=== PATIENT | female | born 1960 | race Caucasian/White ===

== ENCOUNTER 2017-03-15 09:08 | Emergency (ER) | payer BC ==
[2017-03-15 09:23] VITALS: BP 136/76
--- NOTE | 2017-03-15 09:36 | UC ---
Cardiac HPI - HPI Summary HPI Summary: ONSET OF MID STERNAL CP AND SOB LAST NIGHT WHILE AT REST. FELT SHE CAN NOT TAKE A DEEP BREATH DUE TO PAIN. PAIN IS DESCRIBED TIGHT "LIKE A CHARLEY HORSE". ALSO IS COUGHING. NO FEVER, NO NAUSEA, NO RADIATION OF THE PAIN. - History of Current Complaint Stated Complaint: CHEST PAIN SOB Time Seen by Provider: 03/15/17 09:15 Hx Obtained From: Patient Hx Last Menstrual Period: 07/18/12 Onset/Duration: Sudden Onset, Lasting Hours, Still Present Initial Severity: Moderate Current Severity: Moderate Pain Intensity: 6 Chest Pain Location: Mid Sternal Character: Tightness Aggravating Factor(s): Nothing Alleviating Factor(s): Nothing Associated Signs & Symptoms: Positive: SOB, Cough. Negative: Nausea/Vomiting - Allergy/Home Medications Allergies/Adverse Reactions: Allergies Allergy/AdvReac Type Severity Reaction Status Date / Time Penicillins Allergy Severe Rash Verified 03/15/17 09:23 Latex Allergy RASH AND Verified 03/15/17 09:23 SKIN SWELLS FROM LATEX BANDAGES DAIRY/GRAINS Allergy Congestion Uncoded 03/15/17 09:23 ENVIRONMENT/SEASONAL Allergy ITCHY Uncoded 03/15/17 09:23 WATERY EYES, CONGESTION Home Medications: Home Medications Multiple Vitamin [Multivitamins] 1 tab PO DAILY 03/15/17 [History Confirmed ] PMH/Surg Hx/FS Hx/Imm Hx Respiratory History: Asthma - Surgical History Surgical History: Yes Surgery Procedure, Year, and Place: 1971 TONSILLECTOMY (AGE 11), [facility]. 1982 & 2010 BILATERAL BREAST REDUCTIONS X 2, [place], AND [facility]. EXCISION OF CELL FROM CERVIX, [facility] - Family History Known Family History: Positive: Hypertension Negative: Cardiac Disease - Social History Alcohol Use: Rare Substance Use Type: None Smoking Status (MU): Never Smoked Tobacco Review of Systems Constitutional: Negative Respiratory: Shortness Of Breath, Cough Cardiovascular: Chest Pain Gastrointestinal: Negative All Other Systems Reviewed And Are Negative: Yes Physical Exam Triage Information Reviewed: Yes Appearance: Well-Appearing, No Pain Distress, Well-Nourished Vital Signs: Initial Vital Signs Temp 97.9 F 03/15/17 09:19 Pulse 83 03/15/17 09:19 Resp 16 03/15/17 09:19 BP 136/76 03/15/17 09:19 Pulse Ox 100 03/15/17 09:19 Vital Signs Reviewed: Yes Eyes: Positive: Conjunctiva Clear ENT: Positive: Hearing grossly normal Neck: Positive: Supple, Nontender, No Lymphadenopathy Respiratory Exam: Normal Cardiovascular Exam: Normal Abdomen Description: Positive: Soft Musculoskeletal: Positive: No Edema Neurological: Positive: Alert Psychological: Positive: Age Appropriate Behavior Skin: Negative: rashes Diagnostics - EKG Cardiac Rate: NL - 83 BPM Cardiac Rhythm: Sinus: Normal Ectopy: None ST Segment: Non-Specific - LESS THAN 1MM ST ELEVATION INFERIOR LEADS - Assessment/Plan Course Of Treatment: TO [facility] BY PRIVATE CAR - Clinical Impression Provider Diagnoses: CHEST PAIN Discharge - Discharge Plan Condition: Stable Disposition: OTHER Discharge Disposition Comment: TO [facility] BY PRIVATE CAR Patient Education Materials: Chest Pain (ED) Referrals: Tamar VERNON,Dani Kellogg [Primary Care Provider] - If Needed Additional Instructions: GO DIRECTLY TO THE [facility] FROM HERE FOR FURTHER EVALUATION.
[2017-03-15] MEDS ORDERED: Aspirin Low Dose CHEW TAB* 81 MG PO ONE (09:51)
== END 2017-03-15 09:50 ==
LOC: UCEAST 09:08
DX: R07.9 Chest pain, unspecified (principal); Z88.0 Allergy status to penicillin; Z91.040 Latex allergy status; Z91.011 Allergy to milk products; J45.909 Unspecified asthma, uncomplicated
CPT/HCPCS: 99212; A9270-GY; G0463

== ENCOUNTER 2017-03-15 10:21 | Emergency (ER) | payer BC ==
--- NOTE | 2017-03-15 11:50 | RAD ---
HISTORY: Chest pain COMPARISONS: December 07, 2007 VIEWS: 1: frontal portable view of the chest at 11:40 AM FINDINGS: LINES AND TUBES: None. CARDIOMEDIASTINAL SILHOUETTE: The cardiomediastinal silhouette is normal for portable technique. PLEURA: The costophrenic angles are sharp. No pleural abnormalities are noted. LUNG PARENCHYMA: The lungs are clear. ABDOMEN: The upper abdomen is clear. There is no subphrenic gas. BONES AND SOFT TISSUES: No bone or soft tissue abnormalities are noted. IMPRESSION: NO ACTIVE CARDIOPULMONARY DISEASE.
[2017-03-15 12:06] LABS: ABS Basophils 0 10^3/ul (0-0.2); ABS Eosinophils 0.1 10^3/ul (0-0.6); ABS Lymphocytes 1.5 10^3/ul (1.0-4.8); ABS Monocytes 0.7 10^3/ul (0-0.8); ABS Neutrophils 5.6 10^3/ul (1.5-7.7); ABS Nucleated RBC 0 10^3/ul; Hematocrit 41 % (35-47); Hemoglobin 13.9 g/dl (12.0-16.0); Lymphocyte % 18.5 % (25-47); Mean Corpuscular HGB Conc 34 g/dl (31-36); Mean Corpuscular Hemoglobin 31 pg (27-31); Mean Corpuscular Volume 92 fL (80-97); Mean Platelet Volume 9 um3 (7.4-10.4); Nucleated Red Blood Cells % 0; Platelet Count 212 10^3/ul (150-450); Red Blood Count 4.49 10^6/ul (4.0-5.4); Red Cell Distribution Width 13 % (10.5-15); White Blood Count 7.9 10^3/ul (3.5-10.8)
[2017-03-15] MEDS ORDERED: Ketorolac INJ* 30 MG/ML 1 ML VIAL IV PUSH ONE (12:14)
[2017-03-15 12:25] LABS: EGFR Non-African American 57.6 (>60)
[2017-03-15 13:00] VITALS: BP 111/65
--- NOTE | 2017-03-16 17:44 | ED ---
Orlando Johnson Angela, scribed for Anthony Jensen MD on 03/15/17 at 1040 . HPI Chest Pain - HPI Summary HPI Summary: This pt is a 56 y/o female presenting to [facility] referred by [facility] c/o mid sternal chest pain since 22:30 last night. Pt states that pt had pain through the night but was able to sleep until 02:00 when her woke her up. She notes she couldn't go back to sleep after. Pt reports her pain is pleuritic, finding it difficult to breathe, and feels like her "heart has a knot in it." She describes a non-radiating sharp pain, rated 7/10 in severity at its worse with deep breathing. Her pain is aggravated with movement. Denies nausea, vomiting, lightheadedness, recent long travel distance. Pt denies any recent unusual physical activity. 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 - History of Current Complaint Chief Complaint: EDChestPainROMI Time Seen by Provider: 03/15/17 10:38 Hx Obtained From: Patient Hx Last Menstrual Period: 07/18/12 Onset/Duration: Started Hours Ago, Atraumatic, Still Present Timing: Lasting Hours Current Severity: Moderate Pain Intensity: 7 - at its worse Pain Scale Used: 0-10 Numeric Chest Pain Location: Mid Sternal Chest Pain Radiates: No Character: Sharp/Stabbing - Sharp Aggravating Factor(s): Deep Breaths Alleviating Factor(s): Nothing Associated Signs and Symptoms: Positive: Chest Pain. Negative: Shortness of Breath, Fever, Lightheadedness, Nausea, Vomiting - Allergy/Home Medications Allergies/Adverse Reactions: Allergies Allergy/AdvReac Type Severity Reaction Status Date / Time MS Penicillins [Penicillins] Allergy Severe Rash Verified 03/15/17 09:23 MS Latex [Latex] Allergy RASH AND Verified 03/15/17 09:23 SKIN SWELLS FROM LATEX BANDAGES DAIRY/GRAINS Allergy Congestion Uncoded 03/15/17 09:23 ENVIRONMENT/SEASONAL Allergy ITCHY Uncoded 03/15/17 09:23 WATERY EYES, CONGESTION Home Medications: Home Medications Multivitamins/Minerals TAB* [Theragran/minerals TAB*] 1 tab PO DAILY 03/15/17 [ History Confirmed 03/15/17] PMH/Surg Hx/FS Hx/Imm Hx Endocrine/Hematology History: Denies: Hx Diabetes, Hx Thyroid Disease Cardiovascular History: Denies: Hx Hypertension, Hx Pacemaker/ICD Respiratory History: Reports: Hx Asthma - past, Hx Sleep Apnea - NO MACHINES, WAKES HERSELF UP SNORING AND GASPING FOR BREATH Denies: Hx Chronic Obstructive Pulmonary Disease (COPD) Comment Only: Other Respiratory Problems/Disorders - PCP UNAWARE OF SLEEP APNEA INCIDENTS GI History: Reports: Hx Gastroesophageal Reflux Disease - RELATED TO WHAT SHE EATS Denies: Hx Ulcer Musculoskeletal History: Reports: Hx Tendonitis - BILATERAL WRIST Sensory History: Reports: Hx Contacts or Glasses - READING GLASSES Denies: Hx Hearing Aid Opthamlomology History: Reports: Hx Contacts or Glasses - READING GLASSES Psychiatric History: Denies: Hx Panic Disorder - Cancer History Hx Chemotherapy: No Hx Radiation Therapy: No - Surgical History Surgery Procedure, Year, and Place: 1971 TONSILLECTOMY (AGE 11), [facility]. 1982 & 2010 BILATERAL BREAST REDUCTIONS X 2, [place], AND [facility] [place]. EXCISION OF CELL FROM CERVIX, [facility] Anesthesia Reactions: No Infectious Disease History: No Infectious Disease History: Denies: Hx Clostridium Difficile, Hx Hepatitis, Hx Human Immunodeficiency Virus (HIV), Hx of Known/Suspected MRSA, Hx Shingles, Hx Tuberculosis, Hx Known/ Suspected VRE, Hx Known/Suspected VRSA, History Other Infectious Disease, Traveled Outside the [place] in Last 30 Days - Family History Known Family History: Positive: Hypertension Negative: Cardiac Disease - Social History Alcohol Use: Rare Substance Use Type: Reports: None Smoking Status (MU): Never Smoked Tobacco Review of Systems Negative: Fever, Chills Positive: Chest Pain Negative: Vomiting, Nausea Neurological: Other - NEG: lightheadedness All Other Systems Reviewed And Are Negative: Yes Physical Exam - Summary Physical Exam Summary: VITAL SIGNS: Reviewed. GENERAL: Patient is a well-developed and nourished female who is lying comfortable in the stretcher. Patient is not in any acute respiratory distress. HEAD AND FACE: No signs of trauma. No ecchymosis, hematomas or skull depressions. No sinus tenderness. EYES: PERRLA, EOMI x 2, No injected conjunctiva, no nystagmus. EARS: Hearing grossly intact. Ear canals and tympanic membranes are within normal limits. MOUTH: Oropharynx within normal limits. NECK: Supple, trachea is midline, no adenopathy, no JVD, no carotid bruit, no c- spine tenderness, neck with full ROM. CHEST: Symmetric, reproducible chest pain. LUNGS: Clear to auscultation bilaterally. No wheezing or crackles. CVS: Regular rate and rhythm, S1 and S2 present, no murmurs or gallops appreciated. ABDOMEN: Soft, non-tender. No signs of distention. No rebound no guarding, and no masses palpated. Bowel sounds are normal. EXTREMITIES: FROM in all major joints, no edema, no cyanosis or clubbing. NEURO: Alert and oriented x 3. No acute neurological deficits. Speech is normal and follows commands. SKIN: Dry and warm Triage Information Reviewed: Yes Vital Signs On Initial Exam: Initial Vitals Temp Pulse Resp BP Pulse Ox 97.6 F 95 18 161/76 100 03/15/17 10:23 03/15/17 10:23 03/15/17 10:23 03/15/17 10:23 03/15/17 10:23 Vital Signs Reviewed: Yes Diagnostics - Vital Signs Vital Signs Temp Pulse Resp BP Pulse Ox 03/15/17 10:23 97.6 F 95 18 161/76 100 - Laboratory Lab Results: Lab Results 03/15/17 03/15/17 03/15/17 Range/Units 11:57 11:57 11:57 WBC (3.5-10.8) 10^3/ul RBC (4.0-5.4) 10^6/ul Hgb (12.0-16.0) g/dl Hct (35-47) % MCV (80-97) fL MCH (27-31) pg MCHC (31-36) g/dl RDW (10.5-15) % Plt Count (150-450) 10^3/ul MPV (7.4-10.4) um3 Neut % (Auto) (38-83) % Lymph % (Auto) (25-47) % [place] % (Auto) (1-9) % Eos % (Auto) (0-6) % Baso % (Auto) (0-2) % Absolute Neuts (auto) (1.5-7.7) 10^3/ul Absolute Lymphs (auto) (1.0-4.8) 10^3/ul Absolute Monos (auto) (0-0.8) 10^3/ul Absolute Eos (auto) (0-0.6) 10^3/ul Absolute Basos (auto) (0-0.2) 10^3/ul Absolute Nucleated RBC 10^3/ul Nucleated RBC % D-Dimer, Quantitative < 200 (Less Than 230) ng/mL Sodium 139 (133-145) mmol/L Potassium 3.6 (3.5-5.0) mmol/L Chloride 105 (101-111) mmol/L Carbon Dioxide 25 (22-32) mmol/L Anion Gap 9 (2-11) mmol/L BUN 16 (6-24) mg/dL Creatinine 1.00 H (0.51-0.95) mg/dL Est GFR ( Amer) 74.0 (>60) Est GFR (Non-Af Amer) 57.6 (>60) BUN/Creatinine Ratio 16.0 (8-20) Glucose 138 H (70-100) mg/dL Lactic Acid (0.5-2.0) mmol/L Calcium 9.7 (8.6-10.3) mg/dL Magnesium 2.6 (1.9-2.7) mg/dL Total Bilirubin 0.60 (0.2-1.0) mg/dL AST 20 (13-39) U/L ALT 25 (7-52) U/L Alkaline Phosphatase 69 (34-104) U/L Total Creatine Kinase 45 (10-223) U/L CK-MB (CK-2) 0.7 (0.6-6.3) ng/mL Troponin I 0.00 (<0.04) ng/mL B-Natriuretic Peptide 29 ( - 100) pg/mL Total Protein 6.9 (6.4-8.9) g/dL Albumin 4.1 (3.2-5.2) g/dL Globulin 2.8 (2-4) g/dL Albumin/Globulin Ratio 1.5 (1-3) TSH 2.29 (0.34-5.60) mcIU/mL Beta HCG, Quant 3.78 mIU/mL 03/15/17 03/15/17 Range/Units 11:57 11:57 WBC 7.9 (3.5-10.8) 10^3/ul RBC 4.49 (4.0-5.4) 10^6/ul Hgb 13.9 (12.0-16.0) g/dl Hct 41 (35-47) % MCV 92 (80-97) fL MCH 31 (27-31) pg MCHC 34 (31-36) g/dl RDW 13 (10.5-15) % Plt Count 212 (150-450) 10^3/ul MPV 9 (7.4-10.4) um3 Neut % (Auto) 71.1 (38-83) % Lymph % (Auto) 18.5 L (25-47) % [place] % (Auto) 8.8 (1-9) % Eos % (Auto) 1.0 (0-6) % Baso % (Auto) 0.6 (0-2) % Absolute Neuts (auto) 5.6 (1.5-7.7) 10^3/ul Absolute Lymphs (auto) 1.5 (1.0-4.8) 10^3/ul Absolute Monos (auto) 0.7 (0-0.8) 10^3/ul Absolute Eos (auto) 0.1 (0-0.6) 10^3/ul Absolute Basos (auto) 0 (0-0.2) 10^3/ul Absolute Nucleated RBC 0 10^3/ul Nucleated RBC % 0 D-Dimer, Quantitative (Less Than 230) ng/mL Sodium (133-145) mmol/L Potassium (3.5-5.0) mmol/L Chloride (101-111) mmol/L Carbon Dioxide (22-32) mmol/L Anion Gap (2-11) mmol/L BUN (6-24) mg/dL Creatinine (0.51-0.95) mg/dL Est GFR ( Amer) (>60) Est GFR (Non-Af Amer) (>60) BUN/Creatinine Ratio (8-20) Glucose (70-100) mg/dL Lactic Acid 1.5 (0.5-2.0) mmol/L Calcium (8.6-10.3) mg/dL Magnesium (1.9-2.7) mg/dL Total Bilirubin (0.2-1.0) mg/dL AST (13-39) U/L ALT (7-52) U/L Alkaline Phosphatase (34-104) U/L Total Creatine Kinase (10-223) U/L CK-MB (CK-2) (0.6-6.3) ng/mL Troponin I (<0.04) ng/mL B-Natriuretic Peptide ( - 100) pg/mL Total Protein (6.4-8.9) g/dL Albumin (3.2-5.2) g/dL Globulin (2-4) g/dL Albumin/Globulin Ratio (1-3) TSH (0.34-5.60) mcIU/mL Beta HCG, Quant mIU/mL Result Diagrams: 03/15/17 11:57 03/15/17 11:57 Lab Statement: Any lab studies that have been ordered have been reviewed, and results considered in the medical decision making process. - Radiology Chest XR Xray Interpretation: No Acute Changes - IMPRESSION: No active cardiopulmonary disease. Dr. Jensen has reviewed this radiology report. Radiology Interpretation Completed By: Radiologist - EKG 10:44 Cardiac Rate: NL EKG Rhythm: Sinus Rhythm - at 83 bpm EKG Interpretation: No ST elevation. No STEMI. Re-Evaluation - Re-Evaluation First Eval Re-Evaluation Time: 12:38 Comment: I reviewed the XR and lab results with the pt. Chest Pain Course/Dx - Course Course Of Treatment: This pt is a 56 y/o female presenting to [facility] referred by [facility] c/o mid sternal chest pain since 22:30 last night. Pt states that pt had pain through the night but was able to sleep until 02:00 when her woke her up. She notes she couldn't go back to sleep after. Pt reports her pain is pleuritic, finding it difficult to breathe, and feels like her "heart has a knot in it." She describes a non-radiating sharp pain, rated 7/10 in severity at its worse with deep breathing. Her pain is aggravated with movement. Denies nausea, vomiting, lightheadedness, recent long travel distance. Pt denies any recent unusual physical activity. 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 Test results without any significant abnormalities. Chest XR shows no active cardiopulmonary disease. I dont believe the pt has acute coronary syndrome. The pt has no comorbidities to have acute coronary syndrome. The pt is not hypoxic or tachycardic, and D-dimer is negative. Therefore I have no suspicion for PE. In the ED course the pt was given toradol and her symptoms improved. She will be discharged to home with follow up from her PCP. Pt is hemodynamically stable, alert and oriented x3. - Chest Pain Differential Diagnosis/HQI/PQRI: Acute DC, ACS, Angina, CHF, Chest Wall, GI Disease, Lower Respiratory Infection, Pulmonary Edema - Diagnoses Provider Diagnoses: Atypical chest pain Discharge - Discharge Plan Condition: Stable Disposition: HOME Prescriptions: Naproxen [Naproxen 500 mg] 500 mg PO Q8H PRN #20 tab PRN Reason: Pain Patient Education Materials: Chest Pain (ED) Referrals: Tamar VERNON,Dani Kellogg [Primary Care Provider] - 3 Days Additional Instructions: Please follow up with your primary care provider. RETURN TO THE ED FOR ANY WORSENING SYMPTOMS. The documentation as recorded by the Orlando bates Angela accurately reflects the service I personally performed and the decisions made by Mikey leonard Walter, MD.
== END 2017-03-15 12:59 | disposition home or self-care (01) ==
LOC: ED 10:21
DX: R07.89 Other chest pain (principal); Z88.0 Allergy status to penicillin
CPT/HCPCS: 36415; 71045; 80053; 82550; 82553; 83605; 83735; 83880; 84443; 84484; 84702; 85025; 85379; 93005; 96374; 99282; J1885

== ENCOUNTER 2018-05-14 13:01 | Emergency (ER) | payer BC ==
[2018-05-14 13:11] VITALS: BP 125/78
--- NOTE | 2018-05-14 13:11 | UC ---
Skin Complaint HPI - HPI Summary HPI Summary: Tick bite left upper arm--attached about 24 hours---Is on Chemo for breast cancer and approaching NOMAN - History of Current Complaint Chief Complaint: UCRash Time Seen by Provider: 05/14/18 13:03 Stated Complaint: TICK BITE Hx Obtained From: Patient Hx Last Menstrual Period: 07/18/12 ?: No Onset/Duration: Sudden Onset, Lasting Days - 1 Timing: Constant Current Severity: None Location: Discrete Character: Redness Aggravating Factor(s): Nothing Alleviating Factor(s): Nothing Related History: Insect Bite/Sting - Allergy/Home Medications Allergies/Adverse Reactions: Allergies Allergy/AdvReac Type Severity Reaction Status Date / Time Latex, Natural Rubber Allergy Severe Rash Verified 05/14/18 13:12 Penicillins Allergy Severe Rash Verified 05/14/18 13:12 Nickel Allergy Severe Rash Uncoded 05/14/18 13:12 DAIRY/GRAINS Allergy Congestion Uncoded 05/14/18 13:12 ENVIRONMENT/SEASONAL Allergy ITCHY Uncoded 05/14/18 13:12 WATERY EYES, CONGESTION PMH/Surg Hx/FS Hx/Imm Hx Previously Healthy: No Cancer History: Breast Cancer - Surgical History Surgical History: Yes Surgery Procedure, Year, and Place: 1971 TONSILLECTOMY (AGE 11), [facility]. 1982 & 2010 BILATERAL BREAST REDUCTIONS X 2, [place], AND [facility]. EXCISION OF CELL FROM CERVIX, [facility] - Family History Known Family History: Positive: Hypertension Negative: Cardiac Disease - Social History Occupation: Employed Full-time Lives: With Family Alcohol Use: Rare Substance Use Type: None Smoking Status (MU): Never Smoked Tobacco Review of Systems All Other Systems Reviewed And Are Negative: Yes Constitutional: Positive: Negative Skin: Positive: Other - bruise from tick bite left upper arm Eyes: Positive: Negative ENT: Positive: Negative Respiratory: Positive: Negative Cardiovascular: Positive: Negative Gastrointestinal: Positive: Negative Genitourinary: Positive: Negative Motor: Positive: Negative Neurovascular: Positive: Negative Musculoskeletal: Positive: Negative Neurological: Positive: Negative Psychological: Positive: Negative Is Patient Immunocompromised?: Yes Physical Exam Triage Information Reviewed: Yes Appearance: Well-Appearing, No Pain Distress, Well-Nourished Vital Signs Reviewed: Yes Eye Exam: Normal Eyes: Positive: Conjunctiva Clear ENT Exam: Normal ENT: Positive: Normal ENT inspection, Hearing grossly normal. Negative: Trismus , Muffled voice, Hoarse voice Dental Exam: Normal Neck exam: Normal Neck: Positive: Supple, Nontender, No Lymphadenopathy Respiratory Exam: Normal Respiratory: Positive: Chest non-tender, No respiratory distress, No accessory muscle use Cardiovascular Exam: Normal Cardiovascular: Positive: RRR, Pulses Normal, Brisk Capillary Refill Musculoskeletal Exam: Normal Musculoskeletal: Positive: Strength Intact, ROM Intact, No Edema Neurological Exam: Normal Neurological: Positive: Alert, Muscle Tone Normal Psychological Exam: Normal Skin: Positive: Other - site of removed tick left upper arm Course/Dx - Course Course Of Treatment: soap and water wash, doxycycline times one now, tick and ltme information provided - Diagnoses Provider Diagnosis: Tick bite of left upper arm Discharge - Sign-Out/Discharge Documenting (check all that apply): Patient Departure All imaging exams completed and their final reports reviewed: No Studies - Discharge Plan Condition: Stable Disposition: HOME Prescriptions: DOXYcycline CAP(*) [DOXYcycline 100MG CAP(*)] 200 mg PO DAILY #2 cap Patient Education Materials: Tick Bite (ED) Referrals: Kenyatta House MD [Primary Care Provider] - If Needed - Billing Disposition and Condition Condition: STABLE Disposition: Home - Attestation Statements Provider Attestation: I was available for consult. This patient was seen by the JAZMINE. The patient was not presented to , seen by or examined by wi -Karen Ray MD
== END 2018-05-14 13:14 | disposition home or self-care (01) ==
LOC: UCEAST 13:01
DX: S40.862A Insect bite (nonvenomous) of left upper arm, initial encounter (principal); W57.XXXA Bitten or stung by nonvenomous insect and other nonvenomous arthropods, initial encounter; C50.919 Malignant neoplasm of unspecified site of unspecified female breast; Z91.040 Latex allergy status; Z91.011 Allergy to milk products; Z88.0 Allergy status to penicillin; Z91.018 Allergy to other foods; Z91.048 Other nonmedicinal substance allergy status
CPT/HCPCS: 99212; G0463